=== PATIENT | female | born 1950 | race African-American/Black ===

== ENCOUNTER 2021-05-22 16:02 | Inpatient (IN) | payer OTHER ==
[~2021-05-22] VITALS: Ht 167.6 cm; Wt 92.1 kg
--- NOTE | ~2021-05-22 | EEG ---
[facility] [place] [address] ELECTROENCEPHALOGRAM Name: JEROD ROGERS Room #: 461-P ADM IN M.R.#: [id number] Admission: 05/22/21 Attend Phys: Fern Baptiste MD Discharge: Date of : 46 Report #: [id number] THIS REPORT FOR: //name// DATE OF SERVICE: 05/25/2021 This patient is being evaluated for the possibility of seizure. EEG was done by placing the electrode by standard 10-20 system of electrode placement. Both referential and sequential montages were used for recording. Background activity in this patient's EEG is about 7 Hz and 30 microvolts. It is a symmetrical activity. It appeared to be suppressed on the left side, which will be consistent with her stroke. Sporadic epileptiform activity appeared to be present actually coming from both hemispheres. Photic stimulation is unremarkable. IMPRESSION: This is an abnormal EEG, which demonstrates sporadic epileptiform activity in the form of spike and slow wave. If clinically correlated, that finding will be consistent with a diagnosis of seizure disorder. Thank you very much for this referral. By: 1219 1232 Kevin Gatica MD /nt
[2021-05-22 16:03] VITALS: BP 114/82
[2021-05-22 16:41] LABS: ABSOLUTE NEUTROPHILS 4.5 thou/uL (1.4-8.2); BASOPHILS 0.7 % (0.0-2.0); EOSINOPHILS 2.8 % (0.0-3.0); HEMATOCRIT 21.4 % (37.0-47.0); LYMPHOCYTES 33.9 % (24.0-44.0); MCH 22.7 pg (26.0-34.0); MCHC 29.8 g/dL (28.0-37.0); MCV 76.1 fL (80.0-100.0); MONOCYTES 8.5 % (1.0-8.0); PLATELET COUNT 263 thou/uL (150-400); POLYS 54.1 % (36.0-66.0); RBC 2.82 mil/uL (4.20-5.00); WBC 8.4 thou/uL (4.0-11.0)
[2021-05-22 16:46] LABS: ANION GAP 5 mmol/L (7-16); BUN 14 mg/dL (7-18); CALCIUM 8.2 mg/dL (8.5-10.1); CHLORIDE 108 mmol/L (98-107); CO2 29 mmol/L (21-32); CREATININE 0.5 mg/dL (0.6-1.0); GLUCOSE 88 mg/dL (74-106); POTASSIUM 4.9 mmol/L (3.5-5.1)
[2021-05-22 16:47] LABS: HEMOGLOBIN 6.4 gm/dL (12.0-15.0)
[2021-05-22 16:49] LABS: SODIUM 142 mmol/L (136-145)
[2021-05-22 16:52] LABS: ALBUMIN 2.7 g/dL (3.4-5.0); DIRECT BILIRUBIN < 0.1 mg/dL (<0.1-0.2); LIPASE 103 U/L (73-393); SGOT 25 U/L (15-37); SGPT 17 U/L (30-65); TOTAL BILIRUBIN 0.4 mg/dL (0.2-1.0); TOTAL PROTEIN 6.2 g/dL (6.4-8.2)
--- NOTE | 2021-05-22 17:01 | NUR ---
CONSENT TO TREAT OBTAINED FROM [facility].
[2021-05-22 17:07] LABS: ANISOCYTOSIS 2+
[2021-05-22 17:08] LABS: HYPOCHROMASIA 2+; MACROCYTES FEW; POLYCHROMASIA OCCASIONAL
[2021-05-22 17:09] LABS: OVALOCYTES FEW; TEARDROPS OCCASIONAL
[2021-05-22 17:11] LABS: SCHISTOCYTES OCCASIONAL
[2021-05-22 18:01] LABS: URINE BILIRUBIN NEGATIVE (Negative); URINE BLOOD NEGATIVE (Negative); URINE CLARITY CLEAR; URINE COLOR YELLOW; URINE GLUCOSE-RANDOM* NEGATIVE (Negative); URINE KETONES NEGATIVE (Negative); URINE LEUKOCYTES-REFLEX TRACE (Negative); URINE NITRITE-REFLEX NEGATIVE (Negative); URINE PROTEIN (DIPSTICK) NEGATIVE (Negative); URINE UROBILINOGEN 0.2 E.U./dl (0.2-1.0)
[2021-05-22] MEDS ORDERED: NORVASC5 MG PO (18:05)
[2021-05-22] MEDS ORDERED: ACETAMINOPHEN325 MG PO (18:05)
[2021-05-22] MEDS ORDERED: BACLOFEN5 MG PO (18:06)
[2021-05-22] MEDS ORDERED: VITAMIN C500 M2 PO (18:06)
[2021-05-22] MEDS ORDERED: BISACODYL10 MG RECTAL (18:07)
[2021-05-22] MEDS ORDERED: NEURONTIN 300M300 M2 PO (18:07)
[2021-05-22] MEDS ORDERED: HYDRALAZINE 2525 MG PO (18:07)
[2021-05-22] MEDS ORDERED: KEPPRA750 MG PO (18:08)
[2021-05-22] MEDS ORDERED: IRON325 M1 PO (18:08)
[2021-05-22] MEDS ORDERED: CONSTULOSE10 GM/15 M PO (18:09)
[2021-05-22] MEDS ORDERED: PROTONIX40 M4 PO (18:10)
[2021-05-22] MEDS ORDERED: PHENYTOIN100 MG/41 PO (18:11)
[2021-05-22] MEDS ORDERED: CRESTOR5 MG PO (18:11)
[2021-05-22] MEDS ORDERED: EFFER-K 20 MEQ20 ME1 PO (18:11)
[2021-05-22] MEDS ORDERED: SERTRALINE HCL100 MG PO (18:12)
[2021-05-22] MEDS ORDERED: [UNRECOGNIZED DRUG - OTHER] PO (18:12)
[2021-05-22 18:28] LABS: APTT 23.1 Seconds (24.5-32.8); INR 1.28; PROTIME 13.8 Seconds (10.5-12.1)
[2021-05-22 18:34] VITALS: BP 123/54; BP 149/62; BP 157/67
[2021-05-22 22:31] VITALS: BP 157/79
[2021-05-22 22:46] VITALS: BP 159/71
[2021-05-23 04:34] VITALS: BP 160/83
--- NOTE | 2021-05-23 04:58 | NUR ---
Pt admitted from ED at 2320 with upper GIB/Anemia. A/OX2-3,with expressive aphasia but able to voice needs. VSS. C/o pain to right/hand/leg,contracted,ROM completed. Pt's incontinen of B&B,purewick reapplied w/o luck. Has a blister on right thight,open on one area,foam applied over it.WC consulted. Fall precautions in place,will continue to monitor pt.
[2021-05-23 05:31] LABS: HEMOGLOBIN 8.2 gm/dL (12.0-15.0)
[2021-05-23 07:17] VITALS: BP 145/66
--- NOTE | 2021-05-23 10:54 | NUR ---
WOUND CONSULT; THE ANTERIOR RIGHT THIGH HAS AN AREA THAT HAS S/S CONSISTANT WITH A SKIN TEAR. THERE IS NO S/S OF IFECTION. THERE IS FRAGIALLY HEALED AREAS THAT THE PIGMENT HAS NOT RETURNED TO THE AREA WHICH POSSIBLY INDICATES THE PATIENT HAS HAD THIS WOUND FOR A UKNOWABLE AMOUT OF TIME. NO S/S OF INFECTION SEEN OR EXPRESSED AND THE PATIENT DENIES PAIN. RECCOMMENDATION; -XEROFORM GAUZE TO WOUND BED, COVER WITH A BORDER FOAM, CHANGE M/W/F PRN. RN PRESENT.
[2021-05-23 14:58] VITALS: BP 188/94
--- NOTE | 2021-05-23 16:12 | NUR ---
PT ADMITTED RELATED TO UPPER GIB/ANEMIA. CM REVIEWED CHART AND SPOKE WITH CARE TEAM. PT IS AN LTC PT FROM [facility] PT IS [facility]. CM CALLED [facility] PROGRAM COORDINATOR'S OFFICE AND SPOKE WITH FRANKIE ACEVEDO. PT IS TO HAVE AN EGD TOMORROW GI GROUP REACHED OUT TO PA'S OFFICE FOR CONSENT. PLAN IS FOR PT TO RETURN TO [facility] ONCE MEDICALLY STABLE. CM FOLLOWING REGARDING DC PLANNING.
[2021-05-23 19:37] VITALS: BP 137/65
[2021-05-24 00:17] VITALS: BP 151/79
--- NOTE | 2021-05-24 03:05 | NUR ---
UPON SHIFT REPORT, PT RESTLESS, REMOVING TELEMETRY AND ATTEMPTING TO GET OUT OF BED. PER REPORT, PT WITH MULTIPLE SEIZURES ON DAYSHI, SEIZURE PRECAUTIONS INITIATED, PER REPORT BOARD CERTIFIED ORTHODONTIST NOTED THAT PT BECAME TACHYCARDIC (190s) PRECEEDING SEIZURE. NOTIFIED ONCALL MAIL DELIVERER, RECEIVED ORDERS FOR MITTEN RESTRAINTS. MITTENS APPLIED 2147. UPON SHIFT ASSESSMENT, PT AOX4, RESPONDING APPROPRIATELY TO YES/NO ORIENTATION QUESTIONS AND PROMPTS. PT NOTED TO HAVE INTERMITTENT CONFUSION AND FORGETFULNESS ALONG WITH RESTLESSNESS. PT PLEASANT WITH REDIRECTION, REQUIRES FREQUENT REMINDERS. PT REPORTS 9/10 PAIN IN RIGHT THIGH. PT RECEIVING PRN PO NORCO Q6HR WITH PRN PO APAP Q4HR AVAILABLE. PT DENIES SOB WHILE ON ROOM AIR. PT TOLERATING PO INTAKE OF FLUIDS AND MECHANICAL-ALTERED GROUND DIET WITHOUT ISSUE, NPO AT MIDNIGHT. PT WITHOUT NAUSEA OR EMESIS. PT INCONTINENT OF BOWEL AND BLADDER. FEMALE EXTERNAL CATHETER PLACED, PATENT. PT RESTING IN BED THROUGHOUT SHIFT, FREQUENT REPOSITIONING ENCOURAGED. PT NOTED TO HAVE CHRONIC WEAKNESS AND HEMIPARESIS OF RIGHT SIDE, REPOSITIONING ASSISTANCE PROVIDED. PT NOTED TO BECOME MORE COOPERATIVE WITH REDIRECTION AND ALTERNATIVE MEASURES, MITTEN RESTRAINTS DISCONTINUED AT 0021. SENSATION INTACT, CAPILLARY REFILL LESS THAN 3SEC, PERIPHERAL PULSES PALPABLE IN ALL EXTREMITIES. PT ENCOURAGED TO NOTIFY STAFF FOR ALL NEEDS, CALL LIGHT WITHIN REACH, BED ALARM ON, BED LOCKED, ROOM REMAINS NEAR NURSES STATION, FREQUENT MONITORING WILL CONTINUE.
--- NOTE | 2021-05-24 05:34 | NUR ---
UPON SHIFT REPORT, PT RESTLESS, REMOVING TELEMETRY AND ATTEMPTING TO GET OUT OF BED. PER SHIFT REPORT, PT WITH MULTIPLE SEIZURES ON DAYSHIFT, SEIZURE PRECAUTIONS INITIATED, PER REPORT CERTIFIED PERSONAL TRAINER NOTED THAT PT BECAME TACHYCARDIC (190s) PRECEEDING SEIZURE. NOTIFIED ONCALL SHEETFED PRESS OPERATOR, RECEIVED ORDERS FOR MITTEN RESTRAINTS. MITTENS APPLIED AT 2148. UPON SHIFT ASSESSMENT, PT AOX4, RESPONDING APPROPRIATELY TO YES/NO ORIENTATION QUESTIONS AND PROMPTS. PT NOTED TO HAVE INTERMITTENT CONFUSION AND FORGETFULNESS ALONG WITH RESTLESSNESS. PT PLEASANT WITH REDIRECTION, REQUIRES FREQUENT REMINDERS. PT REPORTS 9/10 PAIN IN RIGHT THIGH. PT RECEIVING PRN PO NORCO Q6HR WITH PRN PO APAP Q4HR AVAILABLE. PT DENIES SOB WHILE ON ROOM AIR. PT TOLERATING PO INTAKE OF FLUIDS AND MECHANICAL-ALTERED GROUND DIET WITHOUT ISSUE. PT WITHOUT NAUSEA OR EMESIS. PT INCONTINENT OF BOWEL AND BLADDER. FEMALE EXTERNAL CATHETER PLACED, PATENT WITH GUI URINE. PT RESTING IN BED THROUGHOUT SHIFT, FREQUENT REPOSITIONING ENCOURAGED. SENSATION INTACT. PT NOTED TO HAVE CHRONIC WEAKNESS AND HEMIPARESIS OF RIGHT SIDE, REPOSITIONING ASSISTANCE PROVIDED. PT NOTED TO BECOME MORE COOPERATIVE WITH REDIRECTION AND ALTERNATIVE MEASURES, MITTEN RESTRAINTS DISCONTINUED AT 0021. SENSATION INTACT, CAPILLARY REFILL LESS THAN 3SEC, PERIPHERAL PULSES PALPABLE IN ALL EXTREMITIES. PT ENCOURAGED TO NOTIFY STAFF FOR ALL NEEDS, CALL LIGHT WITHIN REACH, BED ALARM ON, BED LOCKED IN LOWEST POSITION, ROOM REMAINS NEAR NURSES STATION, FREQUENT MONITORING WILL CONTINUE.
[2021-05-24 07:32] VITALS: BP 189/89
--- NOTE | 2021-05-24 07:59 | EKG ---
[address] [address] ELECTROCARDIOGRAM REPORT Name: JEROD ROGERS Room #: 461- ADM IN M.R.#: [id number] Admission: 05/22/21 Attend Phys: Fern Baptiste MD Discharge: Date of : 46 Report #: [id number] [facility] ED Test Date: 2021-05-22 Test Time: 16:09:46 Pat Name: JEROD ROGERS Department: Room: 461 Gender: F Mis Director: oliver : 1950 Requested By: Fern Baptiste Order Number: [id number] MD: Nilo Machado Measurements Intervals [place] Rate: 66 P: 7 MA: 156 QRS: 9 QRSD: 88 T: 15 QT: 417 QTc: 437 Interpretive Statements Sinus rhythm Atrial premature complexes No previous ECG available for comparison Electronically Signed On 05-24-2021 7:59:03 CDT by Nilo Machado [email or web address] <ELECTRONICALLY SIGNED> By: Nilo Machado MD, [facility] 05/24/21 0759 1609 1609 Nilo Machado MD, FACC /EPI
[2021-05-24 11:00] LABS: HEMATOCRIT 27.3 % (37.0-47.0); HEMOGLOBIN 8.6 gm/dL (12.0-15.0)
--- NOTE | 2021-05-24 12:36 | NUR ---
Assumed pt care at 7am.Pt in bed sleeping on and off. Assessment completed.vss Repositioned pt 2qh fpr comfort.External female catheter to wall suction with adequate output.Pt tolerated meds.Received call from preop,updates given regarding and also time for pt up for precedure.At 1215,pt left for gi lab per bed accompanied by transporter.Will continue to monitor.
[2021-05-24 15:10] VITALS: BP 138/66
--- NOTE | 2021-05-24 16:04 | NUR ---
PT HAD EGD TODAY. COLONOSCOPY IS SCHEDULED FOR TOMORROW. CM HAD SPOKEN TO NELLY AT [facility] AND SHE INDICATED THAT THEY ARE WILLING AND ABLE TO ACCEPT PT BACK ONCE MEDICALLY STABLE. CM FOLLOWING REGARDING DC PLANNING.
[2021-05-24 20:17] VITALS: BP 171/98
--- NOTE | 2021-05-25 05:53 | NUR ---
ASSUMED CARE OF PT AT SHIFT CHANGE. PT IS AOX2 AND NEEDS MUST BE ASSUMED. FALL PRECAUTION IN PLACE. PT DENIES PAIN, NAUSEA OR SOA. ASSESSMENT CHARTED. PT WAS ABLE TO COMPLETE 100% OF BOWEL PREP. PT HAD SEVERAL BMS THIS SHIFT, AND BMS APPEAR CLEAR. PT WAS INCT THIS SHIFT. PT WAS ABLE TO GET COMFORTABLE AND SLEEP PART OF THE SHIFT. VSS AND NO S/S OF ACUTE DISTRESS. WILL CONTINUE TO MONITOR.
[2021-05-25 06:47] VITALS: BP 165/83
[2021-05-25 07:25] VITALS: BP 142/79
--- NOTE | 2021-05-25 09:48 | NUR ---
WOUND CARE F/U; THE RIGHT THIGH WOUND LOOKS CLINICALLY BETTER TODAY. THE WOUND HAS NO S/S OF INFECTION. CONTINUE CURRENT TREATMENT.
--- NOTE | 2021-05-25 13:46 | NUR ---
PT WAS TO HAVE COLONOSCOPY THIS DAY. PROCEDURE ABORTED PT HADN'T BEEN PREPPERD. ANTICPATE A KUB WILL BE DONE AND COLONOSCOPY FRIDAY. CM FOLLOWING REGARDING DC PLANNING DC BACK TO [facility] [place] [place]ICALLY ST[place].
[2021-05-25 15:29] VITALS: BP 149/83
--- NOTE | 2021-05-25 19:08 | NUR ---
ASSUMED CARE OF PT AT 0700 THIS MORNING. PT IS GOING TO GI FOR COLONOSCOPY THIS MORNING. PT WENT DOWN AND RETURNED SHORTLY DUE TO PT NOT COMPLETELY CLEAR. PT IS A/OX4 WITH CONFUSION AND LT SIDE CONTRACTURES WITH WEAKNESS. ASSESSMENTS NOTED IN CHART AND OTHERWISE UNREMARKABLE. FALL PRECAUTIONS ARE IN PLACE. CALL LIGHT AND OTHER NEEDS ARE IN REACH. SEIZURE PRECAUTIONS ARE USED. MEDS AND TX GIVEN NEEDED AND SCHEDULED. WILL MONITOR AND NOTE ANY CHANGES.
--- NOTE | 2021-05-25 19:10 | NUR ---
I agree with Cody THOMAS assessment. Corinne Castillo RN.
[2021-05-25 22:09] VITALS: BP 133/55
--- NOTE | 2021-05-26 04:58 | NUR ---
ASSUMED CARE OF PT AT SHIFT CHANGE. PT IS AOX2 AND NEEDS MUST BE ASSUMED. FALL PRECAUITON IN PLACE. PROTONIX DRIP CONTINUED. PT DENIED PAIN, NAUSEA OR SOA. ASSESSMENT CHARTED. PT WAS ABLE TO GET COMFORTABLE AND SLEEP PART OF THE SHIFT. PT WAS INCT THIS SHIFT. VSS AND NO S/S OF ACUTE DISTRESS. WILL CONTINUE TO MONITOR.
[2021-05-26 06:00] VITALS: BP 150/80
[2021-05-26 07:49] VITALS: BP 160/118
[2021-05-26 17:30] VITALS: BP 140/95
--- NOTE | 2021-05-26 17:55 | NUR ---
ASSUMED CARE OF PT AT 0700. THROUGHOUT THE DAY PT HAS HAD NO COMPLAINTS AND VSS. DRANK MAG CITRATE WITH NO BM. NO BLOODY STOOLS. TOLERATED MEALS WELL AND TOOK PILLS ORALLY WITH NO ISSUE. NO COMPLAINTS OF PAIN AT THIS TIME, FALL PRECAUTIONS IN PLACE. PREPARING FOR COLONOSCOPY FRIDAY, WILL CONTINUE TO MONITOR.
[2021-05-26 20:00] VITALS: BP 179/70
[2021-05-27 00:32] VITALS: BP 155/73
--- NOTE | 2021-05-27 06:49 | NUR ---
ASSUMED CARE AT 1900, PT BLOOD PRESSURE ELAVETED, ADRESSED WITH MEDICATION, SLEPT WELL THROUGHT THE NIGHT, BOWEL REGIME IN PROGRESS EFFECTIVE, CHECK AND CHANGE IN PROGRESS, PT VOICES NO PAIN OR DISCOMFORT, SLEPT THROUGH THE NIGHT WILL CONTINUE TO MONITOR.
[2021-05-27 07:54] VITALS: BP 142/67
[2021-05-27 12:47] LABS: HEMATOCRIT 31.5 % (37.0-47.0); HEMOGLOBIN 9.5 gm/dL (12.0-15.0)
[2021-05-27 16:59] VITALS: BP 152/93
--- NOTE | 2021-05-27 17:22 | NUR ---
ASSUMED PT CARE AROUND 0710. PT ALERT X ORIENTED X 3, CONFUSED AT TIMES. ON RA, 2 PERSON ASSIST TO MOVE. INCONTINENT OF BB. HAD 4 BM TODAY. IV RT/FA/SL.RT SIDED WEAKNESS.RT THIGH WOUND CLEANED AND COVERED WITH OPTIFORM. BOWEL PREP GIVEN TODAY, PLAN TO DO COLONOSCOPY TOMORROW. NPO AFTER TODAY MIDNIGHT. ON TELE MONITORING/ SR. FALL PRECT IN PLACE. CALL LIGHT IN REACH. WILL CONT TO MONITOR.
[2021-05-27 20:22] VITALS: BP 149/72
[2021-05-27 20:58] VITALS: BP 183/71
[2021-05-28 08:01] VITALS: BP 149/72
--- NOTE | 2021-05-28 08:19 | NUR ---
UPON SHIFT ASSESSMENT, PT AOX4, RESPONDING TO ORIENTATION PROMPTS APPROPRIATELY. PT WITH INTERMITTENT FORGETFULNESS. PT DENIES PAIN AND SOB WHILE ON ROOM AIR. PT HAS PRN PO NORCO Q4HR AND PRN PO APAP Q4HR AVAILABLE. PT TOLERATING PO INTAKE OF FLUIDS AND CLEAR LIQUID DIET WITHOUT ISSUE, NPO AT MIDNIGHT. PT WITHOUT NAUSEA OR EMESIS. PT INCONTINENT OF BOWEL AND BLADDER, BOWEL PREP GIVEN, MULTIPLE LOOSE STOOLS THEREAFTER. PT MAINTAINS EXTERNAL FEMALE CATHETER WITH GUI URINE NOTED. PT RESTING IN BED THROUGHOUT SHIFT, FREQUENT REPOSITIONING ENCOURAGED, REPOSITIONING ASSISTANCE PROVIDED. PT ENCOURAGED TO NOTIFY STAFF FOR ALL NEEDS, CALL LIGHT WITHIN REACH, BED ALARM ON, BED LOCKED IN LOWEST POSITION, ROOM REMAINS NEAR NURSES STATION, FREQUENT MONITORING WILL CONTINUE.
[2021-05-28 12:22] VITALS: BP 145/60
[2021-05-28 15:42] VITALS: BP 150/60
--- NOTE | 2021-05-28 16:56 | NUR ---
PT WENT FOR COLONOSCOPY THIS AM BUT WASN'T CLEARED OUT. PREP TO BE DONE AGAIN THIS EVENING AND COLONOSCOPY TO BE DONE TOMORROW. PT [facility]CE IT[facility] COMPLETED. CM FOLLOWING.
--- NOTE | 2021-05-28 17:06 | PATH ---
[facility] [place] [address] PATHOLOGY RPT PROCEDURE Name: JEROD ROGERS Room #: 461-P ADM IN M.R.#: [id number] Admission: 05/22/21 Date of : 46 Discharge: Report #: [id number] Path Case #: [id number] [facility] Accession Number: [id number] . 01 Material submitted: . gastrointestinal site - BX GASTRITIS R/O H. PYLORI . 01 Clinical history: . ANEMIA PRESSURE STOOL OCCULT . 02 Diagnosis: Gastric mucosa, gastritis, rule out H. pylori, endoscopic biopsy: - Mild chronic gastritis. - Negative for intestinal metaplasia or atrophy. - Negative for Helicobacter pylori (properly-controlled immunohistochemical stain performed). . (IUV:mml; 05/28/2021) QLM 05/28/2021 1310 Local . 02 Electronically signed: . Karla Thomas MD, Pathologist NPI- [id number] . 01 Gross description: . The specimen is received in formalin, labeled "Jerod Rogers, BX gastritis R/O H-pylori" and consists of 2 cortez tissues aggregating 0.4 x 0.3 x 0.2 cm which are submitted in toto in A1.([place]; 05/25/2021) DKA/DKA 05/25/2021 1238 Local . 02 Pathologist provided ICD-10: K29.50 . 02 CPT . 795769, G43656 Specimen Comment: A courtesy copy of this report has been sent to [phone] Specimen Comment: 1852, Specimen Comment: Report sent to , DR REY / DR CRANDALL Performed at: 01 [place] [id number] [id number] MD Deepak De La Cruz MD Phone: [phone] Performed at: [address] [id number] [address] [address] PATHOLOGY RPT PROCEDURE Name: JEROD ROGERS Room #: 461-P ADM IN M.R.#: [id number] Admission: 05/22/21 Date of : 46 Discharge: Report #: [id number] Path Case #: [id number] MD Karla Thomas MD Phone: [phone]
--- NOTE | 2021-05-28 18:30 | NUR ---
ASSUMED CARE OF PT AT 0700. AT THAT TIME RN SAID THAT PT HAD REMAINED NPO AND HAD FINISHED ENTIRE JUG OF PREP. PREPARED PT FOR PROCEDURE. LATER IN THE DAY RECEIVED PT BACK WITH REPORT OF NOT BEING CLEAR OF BOWEL YET AGAIN. FULL MAG CITRATE GIVEN. 2X BMS. RESTED QUIETLY THROUGHOUT THE DAY, VSS. WILL CONT TO MONITOR.
[2021-05-28 19:46] VITALS: BP 139/75
--- NOTE | 2021-05-29 05:00 | NUR ---
Pt A/OX2-3 able to voice needs,VSS. C/o pain to right hand/Right leg medicated per EMAR with relief reported. Incontinent of B&B at [facility].Has been NPO since midnight for possible colonoscopy,BM loose brown in color. SA on telemetry. Fall precautions in palce,will continue to monitor pt.
--- NOTE | 2021-05-29 09:57 | NUR ---
WOUND CARE F/U; THE THIGHT WOUND IS UNCHANGED SINCE LAST ASSESSMENT. NO S/S OF INFECTION WERE IDENTIFIED. NO NEED TO CHANGE POC AT THIS TIME. RECOMMENDATIONS; CONTINUE XEROFORM, BORDER FOAM M/W/F.
[2021-05-29 11:41] LABS: HEMATOCRIT 28.4 % (37.0-47.0); HEMOGLOBIN 8.5 gm/dL (12.0-15.0)
--- NOTE | 2021-05-29 15:41 | NUR ---
ASSUMED CARE OF PT AT 0700. AT THAT TIME DOLPHIN TRAINER RN NOTIFIED ME THAT STOOL WAS STILL NOT CLEAR OF LAST NIGHT. PASSED THIS ON TO CARE TEAM. MD ORDERED TAP WATER ENEMA. AFTERWARDS, PT WAS CLEAR ENOUGH FOR COLONOSCOPY TO BE PERFORMED. NOW BACK RESTING IN ROOM. FALL PRECAUTIONS IN PLACE. AWAITING WORD BACK FROM FACILITY ON AVAILABILITY ON TRANSPORT FOR HER BACK TO HER FACILITY FOR HER DISCHARGE. WILL CONTINUE TO MONITOR.
--- NOTE | 2021-05-29 16:25 | NUR ---
PT HAD COLONOSCOPY THIS DAY. CM SPOKE WITH PA OFFICE THIS AM INDICATED ANTICIPATED DC BACK TO [facility] THIS AFTERNOON. CM CALLED [facility] AND LEFT FOR MAMIE IN ADMISSIONS. CM FAXED ORDERS. CM SPOKE WITH CHARGE NURSE ON 2ND FLOOR THEY ARE AWARE AND AGREEABLE TO ACCEPT PT BACK THIS DAY. CHART COPY MADE. CM ARRANGED [facility] ST[facility]CHER TRANSPORT FOR TUMBLING BARREL PAINTER BETWEEN 4:08 AND 7:08. TRIP NUMBER [id number]. CM CALLED AND LEFT VM FOR PA'S OFFICE WITH THE ABOVE INFO. NURSE GIVEN NUMBER FOR REPORT. NO OTHER CM INTERVENTION INDCIATED. CASE CLOSED.
[2021-05-29 19:38] VITALS: BP 156/76
--- NOTE | 2021-05-29 19:57 | NUR ---
Assumed pt care at 190. A/OX2,able to voice needs as needed. C/o pain on right hand 01/08. Pt discharge report called into [facility] at 192 to Ezequiel adkins. Pt medicated with [place] and HS meds before discharging. Logistic care here to excelsior picker pt at 1939. Pt personal belongings sent with pt. Left unit at 1944 via cart escorted by transport corey.
[2021-05-29 20:03] VITALS: BP 156/76
--- NOTE | 2021-05-30 08:16 | P ---
[facility] [place] [address] PROCEDURE REPORT Name: JEROD ROGERS Room #: 461-P [facility] IN M.R.#: [id number] Admission: 05/22/21 Attend Phys: Fern Baptiste MD Discharge: 05/29/21 Date of : 46 Report #: [id number] THIS REPORT FOR: cc: KASSIE CRANDALL Physician not on staff Aiden Tamayo MD ~ cc: Fern Baptiste MD DATE OF SERVICE: 05/24/2021 PROCEDURE PERFORMED: Upper endoscopy with biopsies. HISTORY OF PRESENT ILLNESS: The patient is a 70-year-old female with mental disability, previous history of CVA with right-sided hemiparesis. Routine labs in her nursing facility noted a hemoglobin of 6.2. She received 1 unit of packed cells here. Her hemoglobin at this time is 8.6. Stools were Hemoccult positive. The patient is unable to give any significant history. Unclear when her last colonoscopy, if ever, was performed. Plan is for upper endoscopy. Apparently, she had a dark stool at the half-way as well. DESCRIPTION OF PROCEDURE: The risks and benefits of the procedure were explained to the durable power of trade mark attorney. Those risks including but not limited to bleeding, perforation and the risk of sedation. They understood these risks and gave informed consent. Sedation was given using propofol per Anesthesia. Next, using a standard Olympus upper endoscope, the scope was placed in the patient's mouth and advanced under direct vision through the esophagus, stomach, and into the second portion of the duodenum. The larynx was normal in appearance. The esophagus was normal throughout. The GE junction was normal. Upon entering the stomach, a large hiatal hernia was noted. There was a mild gastritis with a few small erosions. No evidence of bleeding. Biopsies were obtained to rule out H. pylori. The gastric antrum was normal. The pylorus was normal and patent. The duodenal bulb, first and second portion were all normal. The scope was then withdrawn and the procedure terminated. The patient tolerated the procedure well. IMPRESSION: 1. Mild gastritis with small erosions. No evidence of bleeding. 2. Large hiatal hernia. 3. Otherwise normal upper endoscopy. RECOMMENDATIONS: 1. Await biopsy results. 2. Continue PPI therapy. 3. We will consider trying to prep the patient for a colonoscopy although this may be difficult. [address] [address] PROCEDURE REPORT Name: JEROD ROGERS Room #: 461-P DIS IN M.R.#: [id number] Admission: 05/22/21 Attend Phys: Fern Baptiste MD Discharge: 05/29/21 Date of : 46 Report #: [id number] Thank you for allowing me to participate in her care. <ELECTRONICALLY SIGNED> By: Aiden Tamayo MD 05/30/21 0816 1340 2212 Aiden Tamayo MD /thong
--- NOTE | 2021-05-30 16:06 | PATH ---
[facility] [address] PATHOLOGY RPT PROCEDURE Name: JEROD ROGERS Room #: 461-P [facility] IN M.R.#: [id number] Admission: 05/22/21 Date of : 46 Discharge: 05/29/21 Report #: [id number] Path Case #: [id number] [facility] Accession Number: [id number] . 01 Material submitted: . PART A: colon - ASCENDING COLON POLYP. Modifiers: ascending PART B: colon - DESCENDING COLON POLYP. Modifiers: descending PART C: sigmoid colon - SIGMOID POLYP . 01 Clinical history: . COLONOSCOPY ANEMIA, UPPER GI BLEED COLON POLYPS . 02 Diagnosis: A. Polyp, ascending colon polyp, endoscopic biopsy: - Multiple superficial fragments of a tubular adenoma. - Negative for high-grade dysplasia. . B. Polyp, descending colon polyp, endoscopic biopsy: - Multiple fragments of a tubular adenoma. - Negative for high-grade dysplasia. . C. Polyp, sigmoid polyp, endoscopic biopsy: - Multiple fragments of a tubular adenoma. - Negative for high-grade dysplasia. (IUV:pit; 05/30/2021) QTP 05/30/2021 1203 Local . 02 Electronically signed: . Karla Thomas MD, Pathologist NPI- [id number] . 01 Gross description: . A. The specimen is received in formalin, labeled "Jerod Rogers, ascending colon polyp". It consists of multiple cortez polypoid soft tissue fragments measuring 0.5 x 1.0 x 0.3 cm in aggregate. The specimen is entirely submitted between sponges in A1. . B. The specimen is received in formalin, labeled "Jerod Rogers, descending colon polyp". It consists of 4 cortez polypoid soft tissue fragments ranging from 0.3-0.7 cortez-lacy smooth. The resection surface of the largest 2 polyps are differentially inked and the fragments are sectioned. The specimen is entirely submitted between sponges in B1. . C. The specimen is received in formalin, labeled "Jerod Rogers, sigmoid polyp". It consists of multiple cortez irregular to polypoid soft tissue [address] [address] PATHOLOGY RPT PROCEDURE Name: JEROD ROGERS Room #: 461-P DIS IN M.R.#: [id number] Admission: 05/22/21 Date of : 46 Discharge: 05/29/21 Report #: [id number] Path Case #: [id number] fragments ranging from 0.1-0.6 cm in greatest dimension. The resection surface of the largest polyp is inked black and the specimen is trisected. The specimen is entirely submitted between [facility] in . (MRF; 05/29/2021) MFE/MFE 05/29/2021 1801 Local . 02 Pathologist provided ICD-10: D12.2, D12.4, D12.5 . 02 CPT . 433755, 089331, 946508 Specimen Comment: A courtesy copy of this report has been sent to [phone], [phone] Specimen Comment: 1202, Specimen Comment: Report sent to , DR CRANDALL / DR MONTEJO Performed at: [address], [place] [id number] MD Deepak De La Cruz MD Phone: [phone] Performed at: [address] [id number] MD Karla Thomas MD Phone: [phone]
== END 2021-05-29 19:45 | DRG 377 ==
LOC: ER 16:02 → 4W 17:56 → EROBS 17:56 → 4W 22:48
PROVIDERS: Nurse Practitioner; ADMIT Hospitalist; ATTEND Hospitalist
DX: K29.71 Gastritis, unspecified, with bleeding (principal); G93.41 Metabolic encephalopathy; D62 Acute posthemorrhagic anemia; E46 Unspecified protein-calorie malnutrition; I69.351 Hemiplegia and hemiparesis following cerebral infarction affecting right dominant side; K25.4 Chronic or unspecified gastric ulcer with hemorrhage; F03.90 Unspecified dementia, unspecified severity, without behavioral disturbance, psychotic disturbance, mood disturbance, and anxiety; R19.5 Other fecal abnormalities; G40.909 Epilepsy, unspecified, not intractable, without status epilepticus; I10 Essential (primary) hypertension; M19.90 Unspecified osteoarthritis, unspecified site; M81.0 Age-related osteoporosis without current pathological fracture; E78.5 Hyperlipidemia, unspecified; K44.9 Diaphragmatic hernia without obstruction or gangrene; Z20.822 Contact with and (suspected) exposure to COVID-19; K59.00 Constipation, unspecified; Z53.9 Procedure and treatment not carried out, unspecified reason; K63.5 Polyp of colon; Z68.32 Body mass index [BMI] 32.0-32.9, adult; Z79.899 Other long term (current) drug therapy
CPT/HCPCS: 10045; 62110; 62900; 70005